=== PATIENT | female | born 1995 | race Hispanic/Latino ===

== ENCOUNTER 2022-12-09 19:47 | Emergency (ER) | payer OTHER ==
[2022-12-09 21:02] LABS: Urine Blood Negative (Negative); Urine Glucose Negative (Negative); Urine Protein 2+ (Negative); Urine Specific Gravity >=1.030 (1.005-1.030)
--- NOTE | 2022-12-09 21:20 | RAD REPORT ---
EXAM DESCRIPTION: US - Matter Eval Tm 1 - 12/09/2022 9:10 pm CLINICAL HISTORY: VAGINAL BLEEDING COMPARISON: No comparisons FINDINGS: Single IUP identified with positive heart tones. The crown-rump length measures 3 cm which is consistent with 9 week 4 day. Uterus measures 10.5 x 7 x 8.8 cm with volume of 337 cc . The right ovary measures 2 x 1.5 x 2 cm with volume of 3.3 cc. The left ovary measures 2.1 x 1.7 x 2.1 c m with volume of 3.9 cc. Bilateral ovarian blood flow is present. IMPRESSION: Single IUP positive heart tones measuring 9 week 4 day with JAY of 07/10/2023. Bilateral ovarian blood flow.
[2022-12-09 22:03] LABS: Absolute Lymphocytes (CBC) 2.3 K/uL (0.7-4.9); Hematocrit 40.5 % (36.0-45.0); MCV 79.3 fL (80-100); MPV 8.6 fL (7.6-11.3); RBC Red Blood Cell Count 5.11 M/uL (3.86-4.86)
[2022-12-09 22:42] LABS: Potassium 3.7 mmol/L (3.5-5.1)
[2022-12-09 22:47] LABS: Urine Specific Gravity/Preg >1.030 (1.005-1.030)
[2022-12-10] MEDS ORDERED: AZITHROMYCIN 250 MG TAB ONE (00:03)
[2022-12-10] MEDS ORDERED: CEFTRIAXONE 1000 MG/VIAL ONE (00:04)
--- NOTE | 2022-12-10 00:56 | ER ---
Nurse's Notes [facility] Name: Magnolia Griffith Age: 27 yrs Sex: Female : 1995 Arrival Date: 12/09/2022 Time: 20:02 Bed 19 Private MD: Diagnosis: Other specified related conditions, first trimester;Encounter for screening for infections with a predominantly sexual mode of transmission Presentation: 12/09 20:33 Chief complaint: Patient states: I am 10 weeks and my vagina is burning. They kd3 gave me UTI pills but i don't think it is that. My boyfriend is cheating on me and it started burning after we had sex. Coronavirus screen: Vaccine status: Patient reports being unvaccinated. Ebola Screen: No symptoms or risks identified at this time. Initial Sepsis Screen: Does the patient meet any 2 criteria? No. Patient's initial sepsis screen is negative. Does the patient have a suspected source of infection? No. Patient's initial sepsis screen is negative. Risk Assessment: Do you want to hurt yourself or someone else? Patient reports no desire to harm self or others. Onset of symptoms was December 09, 2022. 20:33 Method Of Arrival: Ambulatory kd3 20:33 Acuity: MICHELLE 4 kd3 Triage Assessment: 20:35 General: Appears uncomfortable, Behavior is calm, cooperative. Pain: Complains of pain kd3 in vaginal burning. 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 - Social history:: Smoking status: Patient denies any tobacco usage or history of. Screenin:30 [facility] ED Fall Risk Assessment (Adult) History of falling in the last 3 months, jj7 including since admission No falls in past 3 months (0 pts) Confusion or Disorientation No (0 pts) Intoxicated or Sedated No (0 pts) Impaired Gait No (0 pts) Mobility Assist Device Used No (0 pt) Altered Elimination No (0 pt) Score/Fall Risk Level 0 - 2 = Low Risk Maintained a safe environment. Abuse screen: Denies threats or abuse. Nutritional screening: No deficits noted. Tuberculosis screening: No symptoms or risk factors identified. Assessment: 21:28 General: Appears in no apparent distress. comfortable, well developed, well nourished, jj7 Behavior is calm, cooperative, appropriate for age. Pain:. : Reports pain with urination, VAGINAL BURNING AND PAIN. Vital Signs: 20:32 BP 112 / 68; Pulse 74; Resp 19; Temp 98.6(O); Pulse Ox 100% ; Weight 113.4 kg; kd3 21:30 BP 126 / 73; Pulse 81; Resp 17; Pulse Ox 100% ; jj7 22:30 BP 120 / 72; Pulse 77; Resp 18; Pulse Ox 100% ; jj7 23:35 BP 119 / 56; Pulse 75; Resp 17; Pulse Ox 100% ; jj7 12/10 00:30 BP 124 / 87; Pulse 77; Resp 20; Pulse Ox 100% ; jj7 01:15 BP 112 / 65; Pulse 79; Resp 19; Pulse Ox 99% ; jj7 ED Course: 12/09 20:02 Patient arrived in ED. ag3 20:07 Shady Norton PA is PHCP. cp 20:07 Eugenio Grubbs MD is Attending Physician. cp 20:35 Triage completed. kd3 20:36 Arm band placed on right wrist. kd3 21:30 Bed in low position. Call light in reach. Warm blanket given. jj7 21:48 Inserted saline lock: 20 gauge in right forearm, using aseptic technique. aa9 22:20 Kris Moy, ANDRI[place] is Primary Nurse. jj7 23:21 Assist provider with pelvic exam: Set up pelvic tray. Performed by Shady WALKER jj7 Specimens sent to lab. Patient tolerated well. 12/10 01:17 IV discontinued, intact, bleeding controlled, No redness/swelling at site. Pressure jj7 dressing applied. Administered Medications: 00:05 Drug: Zithromax (azithromycin) 1 grams Route: PO; jj7 00:06 Drug: Rocephin (cefTRIAXone) 1 grams Route: IV; Rate: calculated rate; Site: left jj7 forearm; Medication: 12/09 21:30 VIS not applicable for this client. jj7 Outcome: 12/10 00:55 Discharge ordered by . cp 01:15 Discharged to home ambulatory. jj7 01:15 Condition: good 01:15 Discharge instructions given to patient, Instructed on discharge instructions, follow up and referral plans. Demonstrated understanding of instructions, follow-up care. 01:18 Patient left the ED. jj7 Signatures: Shady Norton PA PA cp Gomez, Alice ag3 Nathaly Akhtar RN RN kd3 Basia Agee, RN RN aa9 Kris Moy RN RN jj7 Corrections: (The following items were deleted from the chart) 12/09 23:35 23:21 Assist provider with pelvic exam: Performed by Shady WALKER Specimens sent to jj7 lab. Patient tolerated well. jj7
--- NOTE | 2022-12-10 00:56 | EDPHYS ---
Physician Documentation [facility] Name: Magnolia Griffith Age: 27 yrs Sex: Female : 1995 Arrival Date: 12/09/2022 Time: 20:02 Bed 19 Private MD: ED Physician Eugenio Grubbs HPI: 12/09 20:45 This 27 yrs old Female presents to ER via Ambulatory with complaints of cp Vaginal Pain. 12/10 23:34 The patient presents to the emergency department with vaginal bleeding, described as cp spotting, vaginal discharge and burning after intercourse. The estimated gestational age is 10 weeks. course: care: at a clinic, Leakage of Fluid: none appreciated. The patient is sexually active, reportedly has a single partner. The patient's method of control includes nothing. Patient reports concern about possible sexually transmitted infection. Reports boyfriend cheating. C/o vaginal discharge, vaginal spotting and burning in vaginal area after intercourse. Currently taking prescribed antibiotic for UTI. 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 - Social history:: Smoking status: Patient denies any tobacco usage or history of. ROS: 20:50 Constitutional: Negative for body aches, chills, fever, poor PO intake. cp 20:50 Eyes: Negative for injury, pain, redness, and discharge. cp 20:50 ENT: Negative for drainage from ear(s), ear pain, sore throat, difficulty swallowing, difficulty handling secretions. 20:50 Cardiovascular: Negative for chest pain. 20:50 Respiratory: Negative for cough, shortness of breath, wheezing. 20:50 Abdomen/GI: Negative for abdominal pain, vomiting, diarrhea, constipation. 20:50 : Positive for vaginal bleeding, vaginal discharge, burning after intercourse, Negative for hematuria, pelvic pain, flank pain. 20:50 Skin: Negative for rash. 20:50 All other systems are negative. Exam: 20:55 Constitutional: The patient appears in no acute distress, alert, awake, non-toxic, well cp developed, well nourished, obese. 20:55 Head/Face: Normocephalic, atraumatic. cp 20:55 Eyes: Periorbital structures: appear normal, Conjunctiva: normal, no exudate, no injection, Sclera: no appreciated abnormality, Lids and lashes: appear normal, bilaterally. 20:55 ENT: External ear(s): are unremarkable, Nose: is normal, Mouth: Lips: moist, Oral mucosa: moist, Posterior pharynx: Airway: no evidence of obstruction, patent. 20:55 Chest/axilla: Inspection: normal. 20:55 Cardiovascular: Rate: normal, Rhythm: regular. 20:55 Respiratory: the patient does not display signs of respiratory distress, Respirations: normal, no use of accessory muscles, no retractions, labored breathing, is not present, Breath sounds: are clear throughout, no decreased breath sounds, no stridor, no wheezing. 20:55 Abdomen/GI: Inspection: obese Bowel sounds: active, all quadrants, Palpation: abdomen is soft and non-tender, in all quadrants. 20:55 Skin: no rash present. 12/10 00:00 : Pelvic Exam: External exam: is normal, Speculum exam: no bleeding is noted, no cp cervicitis, os that is closed, bimanual exam reveals no cervical motion tenderness, no uterine tenderness, no adnexa tenderness or masses bilaterally, discharge, white, the nurse was present for the exam. Vital Signs: 12/09 20:32 BP 112 / 68; Pulse 74; Resp 19; Temp 98.6(O); Pulse Ox 100% ; Weight 113.4 kg; kd3 21:30 BP 126 / 73; Pulse 81; Resp 17; Pulse Ox 100% ; jj7 22:30 BP 120 / 72; Pulse 77; Resp 18; Pulse Ox 100% ; jj7 23:35 BP 119 / 56; Pulse 75; Resp 17; Pulse Ox 100% ; jj7 12/10 00:30 BP 124 / 87; Pulse 77; Resp 20; Pulse Ox 100% ; jj7 01:15 BP 112 / 65; Pulse 79; Resp 19; Pulse Ox 99% ; jj7 MDM: 12/09 20:38 Patient medically screened. cp 12/10 00:55 Data reviewed: vital signs, nurses notes, lab test result(s), radiologic studies, cp ultrasound. 00:55 Differential diagnosis: cervicitis, ectopic , nonspecific abdominal pain, cp ovarian cyst, STD, pelvic inflammatory disease, urinary tract infection, vaginosis. I considered the following discharge prescriptions or medication management in the emergency department Medications were administered in the Emergency Department. See MAR. Counseling: I had a detailed discussion with the patient and/or guardian regarding: the historical points, exam findings, and any diagnostic results supporting the discharge/admit diagnosis, lab results, radiology results, the need for outpatient follow up, an OB/Gyne specialist, to return to the emergency department if symptoms worsen or persist or if there are any questions or concerns that arise at home. Response to treatment: the patient's symptoms have mildly improved after treatment, and as a result, I will discharge patient. 12/09 20:39 Order name: Abo/rh Typing; Complete Time: 00:45 cp 12/10 00:45 Interpretation: Reviewed. cp 12/09 20:39 Order name: Basic Metabolic Panel; Complete Time: 23:33 cp 12/09 23:33 Interpretation: Reviewed. cp 12/09 20:39 Order name: CBC with Diff; Complete Time: 22:25 cp 12/09 23:37 Interpretation: Reviewed. cp 12/09 20:39 Order name: Quantitative Hcg; Complete Time: 23:33 cp 12/09 23:33 Interpretation: Reviewed. cp 12/09 20:39 Order name: US Transvaginal Ob cp 12/09 20:39 Order name: IV Saline Lock; Complete Time: 22:27 cp 12/09 20:39 Order name: Labs collected and sent; Complete Time: 22:27 cp 12/09 20:39 Order name: NPO; Complete Time: 22:27 cp 12/09 20:39 Order name: Urine Dipstick-Ancillary (obtain specimen); Complete Time: 21:04 cp 12/09 20:39 Order name: Urine Test (obtain specimen); Complete Time: 21:04 cp 12/09 21:03 Order name: Urine Dipstick-Ancillary; Complete Time: 22:25 EDMS 12/09 23:52 Interpretation: Normal except: UKET 3+; UPROT 2+; UESTR Trace. cp 12/09 21:08 Order name: Urine --Ancillary (enter results); Complete Time: 23:33 ds4 12/09 23:33 Interpretation: Reviewed. cp 12/09 21:21 Order name: US; Complete Time: 22:25 EDMS 12/09 22:27 Order name: Pelvic Exam Setup; Complete Time: 01:02 cp 12/09 22:27 Order name: GC (GONORR/CHLAMYDIA) Probe cp 12/09 22:27 Order name: Wet Prep; Complete Time: 00:45 cp 12/10 00:45 Interpretation: Reviewed. cp Administered Medications: 00:05 Drug: Zithromax (azithromycin) 1 grams Route: PO; jj7 00:06 Drug: Rocephin (cefTRIAXone) 1 grams Route: IV; Rate: calculated rate; Site: left jj7 forearm; Disposition: 23:55 Co-signature as Attending Physician, Eugenio Grubbs MD I reviewed the patient's care rt provided by the Advanced Practice Provider and agree with the diagnosis and treatment plan. Disposition Summary: 12/10/22 00:55 Discharge Ordered Location: Home cp Problem: new cp Symptoms: have improved cp Condition: Stable cp Diagnosis - Other specified related conditions, first trimester cp - Encounter for screening for infections with a predominantly sexual mode of cp transmission Followup: cp - With: Private Physician - When: 2 - 3 days - Reason: Recheck today's complaints Discharge Instructions: - Discharge Summary Sheet cp - and Sexually Transmitted Infections cp - First Trimester of cp - Preventing Sexually Transmitted Infections, Adult cp Forms: - Medication Reconciliation Form cp - Thank You Letter cp - Antibiotic Education cp - Prescription Opioid Use cp Signatures: Dispatcher [employer] EDMS Shady Norton PA PA cp Nathaly Akhtar RN RN kd3 Kris Moy RN RN jj7 Eugenio Grubbs MD MD rt
[2022-12-10 01:32] VITALS: TEMP 98.6
[2022-12-10 01:38] VITALS: BP 112/65; O2SAT 99
== END 2022-12-10 01:18 | disposition home or self-care (01) ==
LOC: ER 19:47
DX: O26.891 Other specified pregnancy related conditions, first trimester (principal); Z11.3 Encounter for screening for infections with a predominantly sexual mode of transmission; Z3A.10 10 weeks gestation of pregnancy
CPT/HCPCS: 36415; 76801; 80048; 81003; 81025; 84702; 85025; 86900; 86901; 87210; 87490; 87590